=== PATIENT | female | born 1970 | race Caucasian/White ===

== ENCOUNTER 2016-05-09 18:55 | Emergency (ER) | payer OTHER ==
[2016-05-09 19:02] VITALS: BP 135/93; PULSE 83; TEMP 97.8; BMI 34.9
--- NOTE | 2016-05-09 20:01 | PDOC ---
History of Present Illness - General Chief Complaint: Cold Symptoms Stated Complaint: WHEEZING/ASTHMA Time Seen by Provider: 05/09/16 19:37 History Source: Patient, Primary Care Provider - History of Present Illness Initial Comments: 05/09/16 19:56 46-year-old female presents to the ED with complaints of intermittent wheezing at night associated with cough for the past 5 days. Patient also complaining of sore throat and chills 3 days ago. Patient denies difficulty breathing, chest pain, abdominal pain, history of diabetes, smoking history, recent travel. Patient states is an asthmatic but has not had an exacerbation over 5 years. Timing/Duration: reports: other (5 days) Severity: reports: mild Possible Cause: Yes: occasional episodes Modifying Factors: improves with: coughing Associated Symptoms: reports: cough, sore throat, wheezing Past History - Past Medical History Allergies/Adverse Reactions: Allergies Allergy/AdvReac Type Severity Reaction Status Date / Time No Known Allergies Allergy Verified 05/09/16 19:02 Home Medications: Ambulatory Orders Aspirin Coated [Ecotrin -] 81 mg PO DAILY #0 tablet.ec 11/16/12 Metoprolol Tartrate [Lopressor -] 25 mg PO BID #60 tablet 11/16/12 Asthma: Yes Cardiac Disorders: Yes (PALPITATIONS) HTN: Yes - Immunization History Immunization Up to Date: Yes - Psycho/Social/Smoking Cessation Hx Anxiety: Yes Suicidal Ideation: No Smoking Status: No Smoking History: Never smoked Have you smoked in the past 12 months: No Number of Cigarettes Smoked Daily: 0 Hx Alcohol Use: No Drug/Substance Use Hx: No Substance Use Type: None Patient Lives Alone: No Lives with/in: spouse/SO Review of Systems - Review of Systems Able to Perform ROS?: Yes Constitutional: Yes: Chills HEENTM: Yes: Throat Pain Respiratory: Yes: Cough, Wheezing. No: Shortness of Breath, SOB with Exertion Cardiac (ROS): No: Symptoms Reported ABD/GI: No: Symptoms Reported : No: Symptoms Reported Musculoskeletal: No: Symptoms Reported Integumentary: No: Symptoms Reported Neurological: No: Symptoms reported *Physical Exam - Vital Signs Last Vital Signs Temp Pulse Resp BP Pulse Ox 97.8 F 83 20 135/93 100 05/09/16 18:59 05/09/16 18:59 05/09/16 18:59 05/09/16 18:59 05/09/16 18:59 - Physical Exam General Appearance: Yes: Nourished, Appropriately Dressed HEENT: positive: EOMI, NICKO, TMs Normal, Pharynx Normal. negative: Pale Conjunctivae Neck: positive: Supple. negative: Lymphadenopathy (R), Lymphadenopathy (L) Respiratory/Chest: positive: Wheezing (mild intermittent and expiratory isabel). negative: Respiratory Distress, Accessory Muscle Use Cardiovascular: positive: Regular Rhythm, Regular Rate. negative: Murmur Gastrointestinal/Abdominal: positive: Soft Extremity: negative: Pedal Edema Integumentary: positive: Normal Color, Warm, Moist Neurologic: positive: Motor Strength 5/5 (ambulatory) Medical Decision Making - Medical Decision Making 05/09/16 19:59 Pt with hx of asthma but has not had an exacerbation in 5 years presents with cough, wheezing, and sore throat. Patient on exam had mild expiratory wheeze bilateral patient with likely mild exacerbation of asthma/acute recent bronchitis. Patient will be given a prescription for azithromycin, prednisone and Robitussin with codeine since symptoms are worse at night. *DC/Admit/Observation/Transfer Diagnosis at time of Disposition: Acute wheezy bronchitis Asthma Qualifiers: Asthma severity: mild intermittent Asthma complication type: with acute exacerbation Qualified Code(s): J45.21 - Mild intermittent asthma with (acute) exacerbation - Discharge Dispostion Disposition: HOME Condition at time of disposition: Good - Patient Instructions Printed Discharge Instructions: DI for Acute Bronchitis, DI for Asthma -- Adult Additional Instructions: Please use medication as prescribed. Please use your inhaler as needed for coughing and wheezing. Please follow up with her PCP as needed . Otherwise return to ED if you develop any difficulty breathing, high fever, or chest pain.
== END 2016-05-09 20:08 | disposition home or self-care (01) ==
LOC: JERFT 18:55
DX: J45.21 Mild intermittent asthma with (acute) exacerbation (principal); J20.9 Acute bronchitis, unspecified
CPT/HCPCS: 99281-25

== ENCOUNTER 2016-05-23 01:15 | Emergency (ER) | payer OTHER ==
--- NOTE | 2016-05-23 02:15 | PDOC ---
[id number] is a 46 year old female with a PMHx of asthma, palpitations, HTN who presents to the ED with RUQ pain and nausea for a week. Patient states that every time she eats fatty foods, her abdomen becomes distended and she feels nauseous. She is only able to tolerate salads. Her appetite has decreased. She denies fever, chills, vomiting, diarrhea. PCP: Dr. Eder Cruz Rn Integrated: Dr. Colby Hu <Connie Mendoza - Last Filed: 05/23/16 03:06> <Skyla Jacobs - Last Filed: 05/25/16 18:09> - General Chief Complaint: Pain, Acute Stated Complaint: ABDOMINAL PAIN Time Seen by Provider: 05/23/16 02:15 Past History <Connie Mendoza Cherelle - Last Filed: 05/23/16 03:06> - Past Medical History Asthma: Yes Cardiac Disorders: Yes (PALPITATIONS) HTN: Yes - Immunization History Immunization Up to Date: Yes - Psycho/Social/Smoking Cessation Hx Anxiety: Yes Suicidal Ideation: No Smoking Status: No Smoking History: Never smoked Have you smoked in the past 12 months: No Number of Cigarettes Smoked Daily: 0 Information on smoking cessation initiated: No Hx Alcohol Use: No Drug/Substance Use Hx: No Substance Use Type: None <JacobsSkyla - Last Filed: 05/25/16 18:09> - Past Medical History Allergies/Adverse Reactions: Allergies Allergy/AdvReac Type Severity Reaction Status Date / Time No Known Allergies Allergy Verified 05/23/16 01:56 Home Medications: Ambulatory Orders NK [No Known Home Medication] 05/23/16 Review of Systems - Review of Systems Comments:: 05/23/16 03:07 GENERAL/CONSTITUTIONAL: No fever or chills. No weakness. HEAD, EYES, EARS, NOSE AND THROAT: No change in vision. No ear pain or discharge. No sore throat. CARDIOVASCULAR: No chest pain or shortness of breath. RESPIRATORY: No cough, wheezing, or hemoptysis. GASTROINTESTINAL: + RUQ pain, nausea, distention. No vomiting, diarrhea or constipation. GENITOURINARY: No dysuria, frequency, or change in urination. MUSCULOSKELETAL: No joint or muscle swelling or pain. No neck or back pain. SKIN: No rash NEUROLOGIC: No headache, vertigo, loss of consciousness, or change in strength/ sensation. ENDOCRINE: No increased thirst. No abnormal weight change. HEMATOLOGIC/LYMPHATIC: No anemia, easy bleeding, or history of blood clots. ALLERGIC/IMMUNOLOGIC: No hives or skin allergy. <MendozaSara aguirreConnie A - Last Filed: 05/23/16 03:06> *Physical Exam - Vital Signs Last Vital Signs Temp Pulse Resp BP Pulse Ox 98.0 F 75 20 162/94 98 05/23/16 01:56 05/23/16 01:56 05/23/16 01:56 05/23/16 01:56 05/23/16 01:56 - Physical Exam Comments: 05/23/16 03:07 GENERAL: Awake, alert, and fully oriented, in no acute distress HEAD: No signs of trauma EYES: PERRLA, EOMI, sclera anicteric, conjunctiva clear ENT: Auricles normal inspection, hearing grossly normal, nares patent, oropharynx clear without exudates. Moist mucosa NECK: Normal ROM, supple, no lymphadenopathy, JVD, or masses LUNGS: Breath sounds equal, clear to auscultation bilaterally. No wheezes, and no crackles HEART: Regular rate and rhythm, normal S1 and S2, no murmurs, rubs or gallops ABDOMEN: RUQ tenderness. Soft, normoactive bowel sounds. No guarding, no rebound. No masses EXTREMITIES: Normal range of motion, no edema. No clubbing or cyanosis. No cords, erythema, or tenderness NEUROLOGICAL: Cranial nerves II through XII grossly intact. Normal speech, normal gait SKIN: Warm, Dry, normal turgor, no rashes or lesions noted. <Connie Mendoza - Last Filed: 05/23/16 03:06> - Vital Signs Last Vital Signs Temp Pulse Resp BP Pulse Ox 98.0 F 75 20 162/94 98 05/23/16 01:56 05/23/16 01:56 05/23/16 01:56 05/23/16 01:56 05/23/16 01:56 <Skyla Jacobs - Last Filed: 05/25/16 18:09> ED Treatment Course - LABORATORY CBC & Chemistry Diagram: 05/23/16 03:20 05/23/16 03:20 <Skyla Jacobs - Last Filed: 05/25/16 18:09> Medical Decision Making - Medical Decision Making 05/25/16 18:04 Pt has biliary colic, and comes with more biliary colic. She states that she gets pain whenever she eats chicke <Skyla Jacobs - Last Filed: 05/25/16 18:09> *DC/Admit/Observation/Transfer - Attestations Scribe Attestion: 05/23/16 03:08 Documentation prepared by Connie Mendoza, acting as special forces medical sergeant for Skyla Jacobs MD. <Connie Mendoza - Last Filed: 05/23/16 03:06> - Discharge Dispostion Admit: No <Skyla Jacobs - Last Filed: 05/25/16 18:09> Diagnosis at time of Disposition: Biliary colic - Discharge Dispostion Disposition: HOME Condition at time of disposition: Stable - Referrals Referrals: Dhaval Cruz [Primary Care Provider] - Jaleel Garcia MD [Staff Physician] - - Patient Instructions Printed Discharge Instructions: DI for Biliary Colic
[2016-05-23 02:22] VITALS: PULSE 75; TEMP 98; BMI 31.6
[2016-05-23] MEDS ORDERED: SODIUM CHLORIDE 0.9% 500 ML INFUS.BAG IV ONE (02:26)
[2016-05-23] MEDS ORDERED: LACTULOSE 20 GM/30 ML UDC (FOR ORAL USE ONLY) PO ONE (02:26)
[2016-05-23] MEDS ORDERED: POLYETHYLENE GLYCOL 3350 119 GM BTL PO ONE (02:27)
[2016-05-23] MEDS ORDERED: LACTULOSE 20 GM/30 ML UDC (FOR ORAL USE ONLY) ONE (03:08)
[2016-05-23 03:56] LABS: BASOPHIL 1.4 % (0-2.0); MCH 29.7 pg (25.7-33.7); MEAN CELL VOLUME 87.3 fl (80-96); MEAN PLT VOLUME 8.6 fl (7.5-11.1); NEUTROPHILS 54.7 % (42.8-82.8); PLATELET COUNT 319 K/MM3 (134-434); WHITE BLOOD COUNT 8.3 K/mm3 (4.0-10.0)
[2016-05-23 04:22] LABS: ALBUMIN 3.9 g/dl (3.4-5.0); ALK PHOS 108 U/L (45-117); AMYLASE 52 U/L (25-115); ANION GAP 9 (8-16); BILIRUBIN,TOTAL 0.4 mg/dL (0.2-1.0); CALCIUM 9.1 mg/dL (8.5-10.1); CO2 27 mmol/L (21-32); CREATININE 0.6 mg/dL (0.55-1.02); GLUCOSE,RANDOM 114 mg/dL (74-106); SGOT/AST 22 U/L (15-37); SGPT/ALT 30 U/L (12-78); TOT PROT 7.5 g/dl (6.4-8.2)
[2016-05-23 05:05] VITALS: BP 119/73
== END 2016-05-23 05:27 | disposition home or self-care (01) ==
LOC: JER 01:15
DX: K80.50 Calculus of bile duct without cholangitis or cholecystitis without obstruction (principal); I10 Essential (primary) hypertension; J45.909 Unspecified asthma, uncomplicated
CPT/HCPCS: 36415; 80053; 82150; 83690; 85025; 99282-25

== ENCOUNTER 2016-11-29 03:30 | Emergency (ER) | payer OTHER ==
[2016-11-29 03:44] VITALS: BP 147/81; PULSE 74; TEMP 97.2; BMI 35.0
[2016-11-29] MEDS ORDERED: CIPROFLOXACIN 0.3% EYE DROPS 5 ML BOTTLE OP ONE (04:13)
--- NOTE | 2016-11-29 04:20 | PDOC ---
History of Present Illness - General Chief Complaint: Eye Problem Stated Complaint: EYE IRRITATION,COUGH,SORE THROAT Time Seen by Provider: 11/29/16 03:36 History Source: Patient, Family Exam Limitations: Language Barrier - History of Present Illness Initial Comments: 11/29/16 04:15 46yo Female patient presents to ED c/o left eye itching, redness, cough, and bilateral ear fullness/itching. Patient states symptoms began 4 days ago and has worsened. She reports OTC Advil for allergy and Visine-A eye drops with minimal relief. She denies any other complaints at this time. Timing/Duration: getting worse Severity: moderate Modifying Factors: improves with: medication. worse with: cold therapy, eating , immobilization, movement, rest, other Associated Symptoms: denies: denies symptoms, chest pain, cough, diaphoresis, fever/chills, headaches, loss of appetite, malaise, nausea/vomiting, rash, seizure, shortness of breath, syncope, weakness, other Past History - Travel Traveled outside of the country in the last 30 days: No Close contact w/someone who was outside of country & ill: No - Past Medical History Allergies/Adverse Reactions: Allergies Allergy/AdvReac Type Severity Reaction Status Date / Time No Known Allergies Allergy Verified 11/29/16 03:42 Home Medications: Ambulatory Orders NK [No Known Home Medication] 05/23/16 Asthma: Yes Cardiac Disorders: Yes (PALPITATIONS) HTN: Yes Hypercholesterolemia: Yes - Surgical History Cardiac Surgery: Yes (cardiac cath, ablation (SVT)) - Immunization History Immunization Up to Date: Yes - Psycho/Social/Smoking Cessation Hx Anxiety: Yes Suicidal Ideation: No Smoking Status: No Smoking History: Never smoked Have you smoked in the past 12 months: No Number of Cigarettes Smoked Daily: 0 Information on smoking cessation initiated: No Hx Alcohol Use: No Drug/Substance Use Hx: No Substance Use Type: None Review of Systems - Review of Systems Able to Perform ROS?: Yes Is the patient limited Bengali proficient: No Constitutional: No: Chills, Fever HEENTM: Yes: Nose Congestion, Throat Pain, Other (Eye Redness and itching, Bilateral ear fullness.). No: Eye Pain, Blurred Vision, Tearing, Ear Pain, Ear Discharge Respiratory: Yes: Cough. No: Shortness of Breath, Wheezing Cardiac (ROS): No: Chest Pain, Lightheadedness, Palpitations, Syncope, Chest Tightness ABD/GI: No: Nausea, Vomiting : No: Burning, Dysuria, Hematuria Musculoskeletal: No: Back Pain Integumentary: No: Bruising, Erythema, Rash, Sweating Neurological: No: Headache, Seizure, Dizziness All Other Systems: Reviewed and Negative *Physical Exam - Vital Signs Last Vital Signs Temp Pulse Resp BP Pulse Ox 97.2 F L 74 20 147/81 99 11/29/16 03:42 11/29/16 03:42 11/29/16 03:42 11/29/16 03:42 11/29/16 03:42 - Physical Exam General Appearance: Yes: Nourished, Appropriately Dressed, Mild Distress. No: Apparent Distress, Moderate Distress, Severe Distress HEENT: positive: EOMI, NICKO, Normal Voice, Symmetrical, TMs Normal, Pharynx Normal, Other (Left eye redness, irritation). negative: Normal ENT Inspection, Pharyngeal Erythema, Tonsillar Exudate, Tonsillar Erythema, Nasal Congestion, Rhinorrhea, TM Bulging, TM Dull, TM Erythema Neck: positive: Trachea midline, Supple. negative: Stridor, Lymphadenopathy (R) , Lymphadenopathy (L), Tender lateral, Tender midline Respiratory/Chest: positive: Lungs Clear, Normal Breath Sounds. negative: Chest Tender, Respiratory Distress, Accessory Muscle Use, Labored Respiration, Rapid RR, Rhonchi, Stridor, Wheezing Cardiovascular: positive: Regular Rhythm, Regular Rate Musculoskeletal: positive: Normal Inspection. negative: CVA Tenderness Extremity: positive: Normal Capillary Refill, Normal Inspection, Normal Range of Motion. negative: Pedal Edema, Swelling, Calf Tenderness, Erythema, Inflammation Integumentary: positive: Normal Color, Dry, Warm. negative: Erythema, Swelling , Bruising Neurologic: positive: width stripper II-XII NML intact, Fully Oriented, Alert, Normal Mood/ Affect, Normal Response, Motor Strength 5/5 *DC/Admit/Observation/Transfer Diagnosis at time of Disposition: Conjunctivitis Qualifiers: Conjunctivitis type: unspecified Laterality: left Qualified Code(s): H10.9 - Unspecified conjunctivitis - Discharge Dispostion Disposition: HOME Condition at time of disposition: Stable Admit: No - Referrals Referrals: Mateo Mcknight [Staff Physician] - - Patient Instructions Printed Discharge Instructions: DI for Conjunctivitis Additional Instructions: Follow up with Dr. Mcknight within 72 hours for further evaluation. Take medications as prescribed. Return if symptoms worsen or any concerns for further evaluation. Take Zrytec, Claritin, or Emmy for symptoms management. Print Language: YORUBA
[2016-11-29] MEDS ORDERED: CIPROFLOXACIN HCL 0.3% OPHTH 2.5ML BOTTLE ONE (04:26)
== END 2016-11-29 04:30 | disposition home or self-care (01) ==
LOC: JER 03:30
DX: H10.32 Unspecified acute conjunctivitis, left eye (principal); I25.10 Atherosclerotic heart disease of native coronary artery without angina pectoris; Z98.61 Coronary angioplasty status; I10 Essential (primary) hypertension; E78.00 Pure hypercholesterolemia, unspecified; J45.909 Unspecified asthma, uncomplicated
CPT/HCPCS: 99282-25

== ENCOUNTER 2018-07-28 23:27 | Emergency (ER) | payer OTHER ==
[2018-07-28 23:32] VITALS: BP 158/78; PULSE 90; TEMP 97.9; BMI 33.6
[2018-07-29] MEDS ORDERED: DEXAMETHASONE LIQUID 0.5 MG/5 ML 240 ML BULK BOTTLE PO ONE (00:22)
[2018-07-29] MEDS ORDERED: DEXAMETHASONE SOD PHOSPHATE 10 MG/1 ML VIAL ONE (00:26)
--- NOTE | 2018-07-29 00:29 | PDOC ---
History of Present Illness - General Chief Complaint: Sore Throat Stated Complaint: SORE THROAT Time Seen by Provider: 07/28/18 23:54 History Source: Patient Exam Limitations: No Limitations - History of Present Illness Initial Comments: 07/29/18 00:20 HISTORY OF PRESENT ILLNESS: This a 48-year-old woman past medical history of SVT status post ablation presents emergency department for evaluation of sore throat, headaches and fever for the past one week. Patient reports is been trying symptomatic treatment which has been minimally successful. She reports the pain is still there but she is no longer having fevers. She denies any difficulty swallowing or vocal changes. No recent travel or sick contacts. PAST MEDICAL HISTORY: see HPI SURGICAL HISTORY: Denies ALLERGIES: No known drug allergies REVIEW OF SYSTEMS General/Constitutional: Denies fever or chills. Denies weakness, weight change. HEENT: see HPI Cardiovascular: Denies chest pain or shortness of breath. Respiratory: Denies cough, wheezing, or hemoptysis. Gastrointestinal: Denies nausea, vomiting, diarrhea or constipation. Denies rectal bleeding. Genitourinary: Denies dysuria, frequency, or change in urination. Musculoskeletal: Denies joint or muscle swelling or pain. Denies neck or back pain. Skin and breasts: Denies rash or easy bruising. Neurologic: Denies headache, vertigo, loss of consciousness, or loss of sensation. Psychiatric: Denies depression or anxiety. Endocrine: Denies increased thirst. Denies abnormal weight change. Hematologic/Lymphatic: Denies anemia, easy bleeding, or history of blood clots. Allergic/Immunologic: Denies hives or skin allergy. Denies latex allergy. PHYSICAL EXAM General Appearance: Well-appearing, appropriately dressed. No apparent distress , no intoxication. HEENT: EOMI, PERRLA, normal ENT inspection, normal voice, TMs normal. No conjunctival pallor. No photophobia, scleral icterus. Oropharynx erythematous with 2+ tonsils present bilaterally laterally. Exudate present on bilateral tonsils. Uvula is midline. Neck: Supple. Trachea midline. No tenderness, rigidity, carotid bruit, stridor , lymphadenopathy, or thyromegaly. Respiratory/Chest: Lungs CTAB. No shortness of breath, chest tenderness, respiratory distress, accessory muscle use. No crackles, rales, rhonchi, stridor , wheezing, dullness Cardiovascular: RRR. S1, S2. No JVD, murmur, bradycardia, tachycardia. 07/29/18 01:05 Past History - Past Medical History Allergies/Adverse Reactions: Allergies Allergy/AdvReac Type Severity Reaction Status Date / Time No Known Allergies Allergy Verified 07/29/18 00:22 Home Medications: Ambulatory Orders Amoxicillin - [Amoxicillin 500mg Capsule -] 500 mg PO BID #20 capsule 07/29/18 Asthma: Yes Cardiac Disorders: Yes (PALPITATIONS) HTN: Yes Hypercholesterolemia: Yes - Surgical History Cardiac Surgery: Yes (cardiac cath, ablation (SVT)) - Immunization History Immunization Up to Date: Yes - Suicide/Smoking/Psychosocial Hx Smoking Status: No Smoking History: Unknown if ever smoked Have you smoked in the past 12 months: No Number of Cigarettes Smoked Daily: 0 Information on smoking cessation initiated: No Hx Alcohol Use: No Drug/Substance Use Hx: No Substance Use Type: None *Physical Exam - Vital Signs Last Vital Signs Temp Pulse Resp BP Pulse Ox 97.9 F 90 20 158/78 99 07/28/18 23:30 07/28/18 23:30 07/28/18 23:30 07/28/18 23:30 07/28/18 23:30 Medical Decision Making - Medical Decision Making 07/29/18 00:21 A/P: 48-year-old woman with 1 week of sore throat, fevers headache and nasal congestion 2+ tonsils present with exudate bilaterally. Uvula is midline No trismus present No vocal changes Physical exam is consistent with a streptococcal pharyngitis. I will treat patient with Decadron 10 mg orally here and will discharge with a prescription for amoxicillin 500 mg twice a day for the next 10 days. Patient is in agreement with this plan and will follow up with her primary doctor next week. *DC/Admit/Observation/Transfer Diagnosis at time of Disposition: Pharyngitis Qualifiers: Pharyngitis/tonsillitis etiology: unspecified etiology Qualified Code(s): J02.9 - Acute pharyngitis, unspecified - Discharge Dispostion Disposition: HOME Condition at time of disposition: Stable Decision to Admit order: No - Prescriptions Prescriptions: Amoxicillin - [Amoxicillin 500mg Capsule -] 500 mg PO BID #20 capsule - Referrals Referrals: Eder Cruz MD [Primary Care Provider] - - Patient Instructions Additional Instructions: Take amoxicillin as prescribed. Salt water garggles. Throw away your toothbrush in 3 days and start using a new toothbrush. No sharing of drinks, utensils or toothbrushes. Take Motrin as directed by securities vault supervisor's instructions. Return to ED for worsening fevers, worsening sore throat, chest pain, shortness of breath or any other concerns. - Post Discharge Activity
== END 2018-07-29 00:30 | disposition home or self-care (01) ==
LOC: JER 23:27
DX: J02.9 Acute pharyngitis, unspecified (principal)
CPT/HCPCS: 99282-25

== ENCOUNTER 2019-06-09 00:33 | Emergency (ER) | payer OTHER ==
[2019-06-09 01:10] VITALS: BMI 33.5
--- NOTE | 2019-06-09 02:04 | PDOC ---
History of Present Illness <Skyla Jacobs - Last Filed: 06/09/19 03:15> - History of Present Illness Initial Comments: Milady Jacobo is a 49 y/o female with reported pmh of asthma and HLD, presenting today with cough for the past couple of days. Reports that a week ago she started feeling sick with generalized body aches. After those resolved, she started having a productive cough that started 2 days ago. Denies fever/ chills. Reports mild midsternal chest pain. Denies shortness of breath. Denies abd pain/back pain. Denies dysuria/diarrhea. Denies lower extremity swelling. <Sawyer Moody - Last Filed: 06/09/19 04:28> - General Chief Complaint: Sore Throat Stated Complaint: COUGH/SORE THROAT Time Seen by Provider: 06/09/19 01:57 Past History <Skyla Jacobs - Last Filed: 06/09/19 03:15> - Past Medical History Asthma: Yes Cardiac Disorders: Yes (PALPITATIONS) COPD: No HTN: Yes Hypercholesterolemia: Yes - Surgical History Cardiac Surgery: Yes (cardiac cath, ablation (SVT)) - Immunization History Immunization Up to Date: Yes - Psycho Social/Smoking Cessation Hx Smoking Status: No Smoking History: Never smoked Have you smoked in the past 12 months: No Number of Cigarettes Smoked Daily: 0 Information on smoking cessation initiated: No Hx Alcohol Use: No Drug/Substance Use Hx: No Substance Use Type: None <Sawyer Moody - Last Filed: 06/09/19 04:28> - Past Medical History Allergies/Adverse Reactions: Allergies Allergy/AdvReac Type Severity Reaction Status Date / Time No Known Allergies Allergy Verified 06/09/19 01:09 Home Medications: Ambulatory Orders Acetaminophen [Tylenol] 650 mg PO PRN 07/29/18 Amoxicillin - [Amoxicillin 500mg Capsule -] 500 mg PO BID #20 capsule 07/29/18 Review of Systems - Review of Systems Comments:: GENERAL/CONSTITUTIONAL: No fever or chills. No weakness._ HEAD, EYES, EARS, NOSE AND THROAT: No change in vision. No change in hearing. No sore throat._ CARDIOVASCULAR: No chest pain or shortness of breath_ RESPIRATORY: Reports cough. GASTROINTESTINAL: No nausea, vomiting, diarrhea or constipation._ GENITOURINARY: No dysuria, frequency, or change in urination._ MUSCULOSKELETAL: Reports general muscle aches (resolved). No neck or back pain._ SKIN: No rash_ NEUROLOGIC: No headache, vertigo, loss of consciousness, or change in strength/ sensation._ ENDOCRINE: No increased thirst. No abnormal weight change_ HEMATOLOGIC/LYMPHATIC: No anemia, easy bleeding, or history of blood clots._ ALLERGIC/IMMUNOLOGIC: No hives or skin allergy._ <Sawyer Moody - Last Filed: 06/09/19 04:28> *Physical Exam - Vital Signs Last Vital Signs Temp Pulse Resp BP Pulse Ox 97.9 F 83 20 128/83 100 06/09/19 01:09 06/09/19 01:09 06/09/19 01:09 06/09/19 01:09 06/09/19 01:09 <Skyla Jacobs - Last Filed: 06/09/19 03:15> - Vital Signs Last Vital Signs Temp Pulse Resp BP Pulse Ox 97.9 F 83 20 128/83 100 06/09/19 01:09 06/09/19 01:09 06/09/19 01:09 06/09/19 01:09 06/09/19 01:09 - Physical Exam GENERAL: Awake, alert, and oriented to person/place/time, in no acute distress_ HEAD: No signs of trauma, normocephalic, atraumatic _ EYES: PERRLA, EOMI, sclera anicteric, conjunctiva clear_ ENT: Hearing grossly normal, nares patent, oropharynx clear without exudates. No uvular deviation. Moist mucosa. No pharyngeal erythema. Mild fluid behind right TM. NECK: Normal ROM, supple, no lymphadenopathy, JVD, or masses_ LUNGS: No distress, speaks in full sentences, clear to auscultation bilaterally _ HEART: Regular rate and rhythm, normal S1 and S2, no murmurs appreciated, peripheral pulses normal and equal bilaterally._ ABDOMEN: Soft, nontender, normoactive bowel sounds. No guarding, no rebound. No masses_ EXTREMITIES: Normal inspection, Normal range of motion, no edema. No clubbing or cyanosis_ NEUROLOGICAL: Cranial nerves II through XII grossly intact. Normal speech, normal gait, no focal sensorimotor deficits _ SKIN: Warm, Dry, normal turgor, no rashes or lesions noted_ <Sawyer Moody - Last Filed: 06/09/19 04:28> ED Treatment Course - Medications Given in the ED: ED Medications Discontinued Medications Generic Name Dose Route Start Last Admin Trade Name Yolande PRN Reason Stop Dose Admin Ibuprofen 600 mg 06/09/19 02:30 06/09/19 03:11 Motrin - PO 06/09/19 02:31 600 mg ONCE ONE Administration <Skyla Jacobs - Last Filed: 06/09/19 03:15> Medical Decision Making - Medical Decision Making 06/09/19 02:06 49F hx of asthma and HLD presenting today with 2 days of productive cough. No fever. -flu swab -strep swab 06/09/19 03:16 Labs reviewed. Laboratory Last Values Influenza A (Rapid) Negative (Negative) 06/09/19 02:01 Influenza B (Rapid) Negative (Negative) 06/09/19 02:01 Group A Strep Rapid Negative (Negative) 06/09/19 02:41 Plan to d/c home with supportive care. All questions answered. Return precautions given. Pt verbalized understanding and agreement with plan. <Sawyer Moody - Last Filed: 06/09/19 04:28> Discharge - Discharge Information Problems reviewed: Yes <Skyla Jacobs - Last Filed: 06/09/19 03:15> <Sawyer Moody - Last Filed: 06/09/19 04:28> - Discharge Information Clinical Impression/Diagnosis: Viral illness Condition: Good Disposition: HOME - Follow up/Referral Referrals: Eder Cruz MD [Primary Care Provider] - - Patient Discharge Instructions Patient Printed Discharge Instructions: DI for Viral Upper Respiratory Infection -- Adult Additional Instructions: Please continue to keep yourself hydrated with fluids as much as possible. Please see your primary care doctor if your symptoms do not improve. If you experience any new, worsening, or concerning symptoms, please return to the emergency department. - Post Discharge Activity Work/Back to School Note: Back to Work
--- NOTE | 2019-06-09 02:19 | PDOC ---
Attending Attestation - Resident Resident Name: Sawyer Moody - ED Attending Attestation I have performed the following: I have examined & evaluated the patient, The case was reviewed & discussed with the resident, I agree w/resident's findings & plan - HPI HPI: 06/09/19 02:29 viral syndrome, as well as sore throat going on x 2 weeks. SHe has a productive cough 06/09/19 02:57 Pain started tooday. She works in the back of the restaurant called [employer] and pt states that it is cold in the back. Pt is taking cough drops and teas, with little relief. She says that she has throat pain and SOB and cough - Physicial Exam PE: 06/09/19 02:59 Norrmal exam. Pt has fluid behing the right ear throat slight redness of the pharynx; no swelling and no exudate. Pt is afebrile SHe has no rashes Pt has normal heart and lungs Abd soft NT ND No flank pain No C/C/E - Medical Decision Making 06/09/19 03:14 No flu and no strep
[2019-06-09] MEDS ORDERED: IBUPROFEN 600 MG TABLET (FP) PO ONE ×2 (02:30→03:05)
[2019-06-09 04:32] VITALS: BP 121/76; PULSE 78; TEMP 98
== END 2019-06-09 04:02 | disposition home or self-care (01) ==
LOC: JER 00:33
DX: J06.9 Acute upper respiratory infection, unspecified (principal); B97.89 Other viral agents as the cause of diseases classified elsewhere; I25.10 Atherosclerotic heart disease of native coronary artery without angina pectoris; I10 Essential (primary) hypertension; Z98.61 Coronary angioplasty status; Z86.79 Personal history of other diseases of the circulatory system; Z98.890 Other specified postprocedural states
CPT/HCPCS: 87070; 87804; 87880; 99282-25

== ENCOUNTER 2020-01-12 01:20 | Emergency (ER) | payer OTHER ==
--- OUTSIDE RECORDS SUMMARY | 2020-01-12 01:35 | XMS ---
:1970 Author Organization [facility] Care Team Providers Name Role Phone [facility], [facility] Unavailable Unavailable Jose Angel WHITAKER, [id number] Unavailable UnavailLISANDRO Randoplh Unavailable Unavailable AKASH ARAUJO Unavailable Unavailable Re-disclosure Warning The records that you are about to access may contain information from federally- assisted alcohol or drug abuse programs. If such information is present, then the following federally mandated warning applies: This information has been disclosed to you from records protected by federal confidentiality rules (42 CFR part 2). The federal rules prohibit you from making any further disclosure of this information unless further disclosure is expressly permitted by the written consent of the person to whom it pertains or as otherwise permitted by 42 CFR part 2. A general authorization for the release of medical or other information is NOT sufficient for this purpose. The Federal rules restrict any use of the information to criminally investigate or prosecute any alcohol or drug abuse patient.The records that you are about to access may contain highly sensitive health information, the redisclosure of which is protected by Article 27-F of the [facility] Public Health law. If you continue you may haveaccess to information: Regarding HIV / AIDS; Provided by facilities licensed or operated by the [facility] Office of Mental Health; or Provided by the [facility] Office for People With Developmental Disabilities. If such information is present, then the following [facility] mandated warning applies: This information has been disclosed to you from confidential records which are protected by state law. State law prohibits you from making any further disclosure of this information without the specific written consent of the person to whom it pertains, or as otherwise permitted by law. Any unauthorized further disclosure in violation of state law may result in a fine or correction sentence or both. A general authorization for the release of medical or other information is NOT sufficient authorization for further disclosure. Encounters Encounter Providers Location Date Indications Data Source(s ) Outpatient Attender: MICHAEL, 12/07/2019 Z03.818 [facility] LISANDRO HenryMynorAdmitter: 06:00:00 AM Health Care LISANDRO RODRIGUEZMynor EDT Corpora ti Z03.818 Outpatient Attender: [id number] 05/29/2019 12:22:10 PM [facility] ([facility]) Patient admitted. Outpatient Attender: [id number] 09/26/2018 [facility] BRIANNELATONIA, 09:57:00 AM EDT Health Care RAdmitter: [id number] CorporJose Angel Acuna Outpatient Attender: [id number] [facility] RAdmitter: [id number] Jose Angel Still Outpatient Attender: [id number] [facility] RAdmitter: [id number] CorporJose Angel Acuna Emergency Attender: GAYLE, 08/29/2018 [facility]00 PM EDT OF [facility] Care [facility] LEFT SIDE OF [facility] PAIN Insurance Providers Payer name Policy type Policy ID Covered Covered green party's Policy P lucia / Coverage green party ID relationship to [employer] ormation type da silva AFFINITY [id number] SP [id number] ESSENTIAL PLAN 1 2 Problems, Conditions, and Diagnoses Code Display Name Description Problem Type Effective Data Sour ce(s) Dates Z03.818 Encounter for ENCNTR FOR OBS Diagnosis 12/07/2019 [facility] observation for FOR SUSP EXPSR TO 06:00:00 AM [employer] suspected OTH BIOLG AGENTS EDT Care Cor poration exposure to other RULED OUT biological agents ruled out K02.9 Dental caries, DENTAL CARIES, Diagnosis 09/26/2018 [facility] unspecified UNSPECIFIED 09:57:00 AM [facility] EDT Care Corporati on Z13.84 Encounter for ENCOUNTER FOR Diagnosis 09/01/2018 [facility] screening for SCREENING FOR 07:48:00 AM [facility] dental disorders DENTAL DISORDERS EDT [facility] Z98.818 Other dental OTHER DENTAL Diagnosis 08/29/2018 [facility] procedure status PROCEDURE STATUS 11:53:00 PM [facility] EDT Care Corporati on I10 Essential ESSENTIAL Diagnosis 08/29/2018 [place] (primary) (PRIMARY) 11:53:00 PM [facility] hypertension HYPERTENSION EDT Care Corpo ration R20.0 Anesthesia of ANESTHESIA OF Diagnosis 08/29/2018 [facility] skin SKIN 11:53:00 PM [facility] EDT Care Corporati on R51 Headache HEADACHE Diagnosis 08/29/2018 [place] 11:53:00 PM [facility] EDT Care Corporati on Results ID Date Data Source [id number] 12/08/2019 12:00:00 AM EDT [facility] Name Value Range Interpretation Code Description Data Marie rce(s) Supporting Document(s ) SARS-COV-2 [place] RNA RT-PCR [facility] This lab was ordered by [facility] and reported by [facility]. ID Date Data Source [id number] 08/09/2019 12:00:00 AM EDT [facility] Name Value Range Interpretation Code Description Data Marie rce(s) Supporting Document(s ) 2019-nCoV [facility] RNA XXX GARY+probe- Imp This lab was ordered by [facility] and reported by [employer] Procedure
--- NOTE | 2020-01-12 01:37 | PDOC ---
History of Present Illness - General Stated Complaint: ABDOMINAL PAIN Time Seen by Provider: 01/12/20 01:36 History Source: Patient Exam Limitations: No Limitations - History of Present Illness Initial Comments: 01/12/20 01:58 49 y.o. F PMHx Asthma, HLD presenting due to abdominal pain. Patient states she has been having upper L sided abdominal pain for the past 4 week. Patient also endorses lower left sided abdominal pain for the past few days. Patient states she has been having increased gassy episodes of diarrhea when she eats. Patient denies headache, fever, N/V, chest pain, SOB. PCP: Dr. Cruz PMHx: Asthma, HLD Meds: In Chart Allergies: NKDA Past History - Medical History Allergies/Adverse Reactions: Allergies Allergy/AdvReac Type Severity Reaction Status Date / Time No Known Allergies Allergy Verified 01/12/20 01:37 Home Medications: Ambulatory Orders NK [No Known Home Medication] 01/12/20 Asthma: Yes Cardiac Disorders: Yes (PALPITATIONS) COPD: No HTN: Yes Hypercholesterolemia: Yes - Surgical History Cardiac Surgery: Yes (cardiac cath, ablation (SVT)) - Immunization History Immunization Up to Date: Yes - Psycho-Social/Smoking History Smoking Status: No Smoking History: Never smoked Have you smoked in the past 12 months: No Number of Cigarettes Smoked Daily: 0 Review of Systems - Review of Systems Able to Perform ROS?: Yes Is the patient limited Moroccan proficient: No Constitutional: No: Chills, Fever HEENTM: No: Blurred Vision, Double Vision Respiratory: No: Cough, Shortness of Breath, Stridor, Wheezing Cardiac (ROS): No: Chest Pain, Edema, Lightheadedness ABD/GI: Yes: Diarrhea. No: Constipated, Nausea, Vomiting : No: Burning, Dysuria Musculoskeletal: No: Back Pain, Muscle Weakness Integumentary: No: Bruising, Dryness Neurological: No: Headache, Numbness, Tingling, Dizziness Hematologic/Lymphatic: No: Anemia, Easy Bleeding, Easy Bruising *Physical Exam - Physical Exam General Appearance: Yes: Nourished, Appropriately Dressed. No: Apparent Distress Respiratory/Chest: positive: Lungs Clear, Normal Breath Sounds. negative: Chest Tender, Respiratory Distress, Accessory Muscle Use, Crackles, Rales, Stridor, Wheezing Cardiovascular: positive: Regular Rhythm, Regular Rate. negative: Edema, JVD, Murmur Gastrointestinal/Abdominal: positive: Normal Bowel Sounds, Tender (LUQ), Flat, Soft, Tenderness (LUQ). negative: Distended, Guarding, Rebound Musculoskeletal: positive: Normal Inspection. negative: CVA Tenderness Integumentary: positive: Normal Color, Dry, Warm Neurologic: positive: Fully Oriented, Alert, Normal Mood/Affect, Normal Response ED Treatment Course - LABORATORY CBC & Chemistry Diagram: 01/12/20 02:00 01/12/20 02:00 Medical Decision Making - Medical Decision Making 01/12/20 02:04 49 y.o. F PMHx Asthma, HLD presenting due to abdominal pain. DDx: Gastritis, Cholelithiasis, IBS, IBD Labs: WBC 9.1, K 3.4, A;k phos 122, Lipase 196 UA: WNL Dispo: D/C home 01/12/20 02:46 Discharge - Discharge Information Problems reviewed: Yes Clinical Impression/Diagnosis: Flatulence/gas pain/belching, Biliary colic Condition: Improved Disposition: HOME - Follow up/Referral Referrals: Jenna Castillo MD [Staff Physician] - Eder Cruz MD [Primary Care Provider] - - Patient Discharge Instructions Patient Printed Discharge Instructions: Intestinal Gas (Alternative Therapy) - Post Discharge Activity
[2020-01-12 01:41] VITALS: BP 148/70; PULSE 77; TEMP 98; BMI 30.9
--- NOTE | 2020-01-12 02:04 | PDOC ---
Attending Attestation - Resident Resident Name: Sujit Callejas - ED Attending Attestation I have performed the following: I have examined & evaluated the patient, The case was reviewed & discussed with the resident, I agree w/resident's findings & plan - HPI HPI: 01/12/20 02:04 Pt comes with left sided abd pain that she feels regardless of what food she eats. This has been ongoing for 4 weeks. - Physicial Exam PE: 01/12/20 02:27 Pt is afebrile VSS Left sided abd pain. No rebound and no guarding Pt has no right sided pain and no epigastric pain Pt has no flank pain Pt has no swelling of arms or legs. 01/12/20 02:28 Agree with resident exam - Medical Decision Making 01/12/20 02:27 CBC is normal 01/12/20 04:[address] scan abd pelvis reading pending 01/12/20 04:26 Patient Name: NAVEED GONZALEZ THIS IS A PRELIMINARY REPORT DATE OF SERVICE: 2020-01-12 03:06:51 IMAGES: 500 EXAM: ABDOMEN \T\ PELVIS CT WITH CONTR HISTORY: Rule out colitis COMPARISON: None. FINDINGS: Lung bases are clear. The visualized cardiac chambers are normal size and configuration. Normal liver, gallbladder, pancreas, spleen, adrenal glands and kidneys. The stomach and abdominal small and large bowel are normal. There is no aortic aneurysm. There is no significant retroperitoneal lymphadenopathy. The pelvic small and large bowel are normal. The appendix is normal. The uterus and adnexal structures are normal. Urinary bladder is unremarkable. There is no pelvic free fluid. No discrete pelvic lymphadenopathy is identified. IMPRESSION: No localizing signs for acute pathology 01/12/20 04:26 Pt will be discharged. She can follow with gastroenterology Discharge - Discharge Information Problems reviewed: Yes Clinical Impression/Diagnosis: Flatulence/gas pain/belching Condition: Improved Disposition: HOME - Admission No - Follow up/Referral Referrals: Eder Cruz MD [Primary Care Provider] - Jenna Castillo MD [Staff Physician] - - Patient Discharge Instructions Patient Printed Discharge Instructions: Intestinal Gas (Alternative Therapy) - Post Discharge Activity
[2020-01-12 02:05] LABS: BASO % 0.7 % (0-2.0); EOS % 1.5 % (0-4.5); HEMATOCRIT 38.8 % (32.4-45.2); HEMOGLOBIN 13.5 GM/dL (10.7-15.3); MCHC 34.8 g/dl (32.0-36.0); MEAN CELL VOLUME 86.2 fl (80-96); MEAN PLT VOLUME 8.3 fl (7.5-11.1); MONO % 5.1 % (3.8-10.2); NEUT % 63.7 % (42.8-82.8); PLATELET COUNT 267 K/MM3 (134-434); RDW 12.8 % (11.6-15.6); WHITE BLOOD COUNT 9.1 K/mm3 (4.0-10.0)
[2020-01-12 02:23] LABS: EPI CELLS 7 /uL (0-25.1); HYALINE CASTS 1 /uL (0-3.1); PH,URINE 5.5 (5.0-8.0); URINE APPEARANCE CLEAR; URINE BACTERIA 825 /uL (0-1359); URINE BILIRUBIN NEGATIVE (NEGATIVE); URINE COLOR YELLOW; URINE GLUCOSE (UA) NEGATIVE (NEGATIVE); URINE KETONE NEGATIVE (NEGATIVE); URINE LEUK ESTERASE TRACE (NEGATIVE); URINE NITRITE NEGATIVE (NEGATIVE); URINE PROTEIN NEGATIVE (NEGATIVE); URINE RBC 4 /uL (0-23.9); URINE UROBILINOGEN 0.2 mg/dL (0.2-1.0); URINE WBC 8 /uL (0-25.8)
[2020-01-12 02:34] LABS: ALBUMIN 3.6 g/dl (3.4-5.0); BILIRUBIN,TOTAL 0.4 mg/dL (0.2-1); BLOOD UREA NITROGEN 15.7 mg/dL (7-18); CALCIUM 8.7 mg/dL (8.5-10.1); CREATININE 0.6 mg/dL (0.55-1.3); POTASSIUM 3.4 mmol/L (3.5-5.1); TOT PROT 7.1 g/dl (6.4-8.2)
== END 2020-01-12 04:36 | disposition home or self-care (01) ==
LOC: JER 01:20
DX: R14.3 Flatulence (principal); R14.1 Gas pain; R14.2 Eructation
CPT/HCPCS: 36415; 74177-TC; 80053; 81003; 83690; 85025; 87086; 99285-25; Q9967

== ENCOUNTER → 2020-04-09 | Day surgery (SDC) | payer OTHER | END | disposition home or self-care (01) | LOC: JRADUS-SUR 08:43 | PROVIDERS: ATTEND Family Medicine Geriatric Medicine | PROC: 0H9T3ZX Drainage of Right Breast, Percutaneous Approach, Diagnostic (ICD-10-PCS; principal; 2020-04-09) | DX: D24.1 Benign neoplasm of right breast (principal) | CPT/HCPCS: 19083; 87899; A4648 ==

== ENCOUNTER 2020-08-28 11:14 | Emergency (ER) | payer OTHER ==
[2020-08-28 11:28] VITALS: BP 158/91; PULSE 77; TEMP 98.6; BMI 31.6
== END 2020-08-28 12:25 | disposition home or self-care (01) ==
LOC: JERFT 11:14
PROC: 0HQGXZZ Repair Left Hand Skin, External Approach (ICD-10-PCS; principal; 2020-08-28)
DX: S61.412A Laceration without foreign body of left hand, initial encounter (principal)
CPT/HCPCS: 99283-25

== ENCOUNTER 2024-11-30 11:20 | Emergency (ER) | payer OTHER ==
[2024-11-30 11:28] VITALS: RESP 19; TEMP 97.9; BMI 32.8
[2024-11-30] MEDS ORDERED: MECLIZINE HCL 25 MG TABLET (FP) ONE (12:27)
[2024-11-30] MEDS: MECLIZINE HCL 25 MG TABLET (FP) PO ONE (12:49)
[2024-11-30] MEDS: LACTATED RINGERS SOLUTION 1000 ML INFUS.BAG IV ONE (12:50)
[2024-11-30 13:11] LABS: ABSOLUTE IMMATURE GRANULOCYTES 0.03 x10^3/uL (0.0-0.031); BASOPHILS # 0.04 x10^3/uL (0.01-0.08); EOSINOPHIL % 1.4 % (0.7-5.8); EOSINOPHILS # 0.10 x10^3/uL (0.04-0.36); MCHC 33.6 g/dl (32.2-35.5); MEAN CELL VOLUME 86.5 fl (79.4-94.8); MEAN PLT VOLUME 9.7 fl (9.4-12.3); MONOCYTE # 0.48 x10^3/uL (0.24-0.86); MONOCYTE % 6.8 % (4.7-12.5); RDW 12.0 % (12.3-16.6)
[2024-11-30 14:08] LABS: HIV INTERPRETATION NEGATIVE (NEGATIVE)
[2024-11-30 14:09] LABS: HCV DIAGNOSTIC IN-HOUSE W/RFLX NON-REACTIVE (NONREACTIVE)
[2024-11-30 14:26] LABS: GLUCOSE,RANDOM 89.0 mg/dL (74-106); TOT PROT 7.9 g/dl (6.4-8.2)
[2024-11-30 14:27] LABS: CO2 22.0 mmol/L (21-32)
[2024-11-30 14:29] LABS: ALK PHOS 116.0 U/L (40-150)
[2024-11-30 14:31] LABS: SGOT/AST 33.0 U/L (5-34); SGPT/ALT 27.0 U/L (0-55)
[2024-11-30 14:32] LABS: CREATININE 0.45 mg/dL (0.55-1.3)
[2024-11-30 15:46] VITALS: BP 161/76; PULSE 74
== END 2024-11-30 15:48 | disposition home or self-care (01) ==
LOC: JER 11:20
DX: R42 Dizziness and giddiness (principal); R11.2 Nausea with vomiting, unspecified
CPT/HCPCS: 36415; 70450-TC; 80053; 83735; 84100; 85025; 86803; 87389; 93005; 93010; 99285-25